=== PATIENT | female | born 1990 | race Two or more races ===

== ENCOUNTER 2020-05-27 13:49 | Outpatient (REF) | payer OTHER, SELFPAY ==
[2020-05-27 15:15] LABS: SARS COV2 PCR INHOUSE NEGATIVE (Negative)
== END 2020-05-27 13:50 | disposition home or self-care (01) ==
LOC: HO.LAB 13:49
PROVIDERS: Visit Provider Internal Medicine
DX: Z20.822 Contact with and (suspected) exposure to COVID-19 (principal)
CPT/HCPCS: C9803; U0003